=== PATIENT | female | born 1960 | race Caucasian/White ===

== ENCOUNTER 2020-12-07 16:01 | Outpatient (RCR) | payer OTHER, SELFPAY ==
[2020-12-07] MEDS: COVID-19 VACC, MRNA(PFIZER)/PF 30 MCG/0.3 ML SYRINGE IM (14:58)
[2020-12-28] MEDS: COVID-19 VACC, MRNA(PFIZER)/PF 30 MCG/0.3 ML SYRINGE IM (14:58)
== END 2020-12-07 23:59 ==
LOC: IMMUN 16:01
PROVIDERS: Visit Provider Family Medicine
DX: Z23 Encounter for immunization (principal)
CPT/HCPCS: 0001A; 0002A; 91300